=== PATIENT | male | born 1940 | race Caucasian/White ===

== ENCOUNTER 2016-05-04 | Outpatient (CLI) | payer MEDICARE, OTHER | END 2016-05-04 11:18 | disposition home or self-care (01) ==

== ENCOUNTER 2016-08-26 09:02 | Outpatient (CLI) | payer MEDICARE, OTHER ==
--- NOTE | 2016-09-01 20:56 | CONSULTATION NOTE ---
DATE OF CONSULTATION: 08/26/2016 00:00:00 REQUESTING PROVIDER: Sonu Ibarra MD. TIME OF VISIT: 9:15-9:45. TOPIC: Followup palliative care consult. Thank you, Dr. Ibarra, for asking the palliative care consult service to be involved in the care of your patient. I am asked to provide support for symptom management, as well as goals of care discussion. BRIEF HISTORY OF PRESENT ILLNESS UPDATE: This is a ana 76-year-old gentleman who was diagnosed with small cell lung cancer, limited stage of left upper lobe , since 08/2015. He had radiation and chemotherapy, as well as prophylactic brain radiation. Has had intermittent confusion, which continues to be of distress for him. 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 He is on carboplatin and COUNTER TENDER-16. He has had intermittent recurrent left pleural effusion with the last thoracentesis done in 05/2016. He is presenting with increased pain in his lower back that is exacerbated with standing, relieved with sitting. Has been using oxycodone pain pills intermittently, but his confusion is of concern. He also has had increased confusion, hallucinations, and difficulty with fatigue. Most recently he did take a cruise through [place]. He was in his wheelchair most of the time, but did enjoy his trip. SYMPTOM BURDEN: Pain as noted above, rates it as moderate to severe. Fatigue has been increasing. He has had less energy and has been quite sedentary. His nausea has been fair. His appetite is good. He has had shortness of breath with activity. Does use oxygen at night, but has not needed it during the day. He does report depression and anxiety and despite his progressive disease perceives his overall quality of life as fair. ALLERGIES: NO KNOWN MEDICATION ALLERGIES. MEDICATION LIST 1. Escitalopram 10 mg tabs 2 tabs daily. 2. Propranolol 10 mg 2 tabs by mouth every morning and 1-2 tabs in the afternoon for anxiety and tremor. 3. Aspirin 81 mg daily. 4. Amantadine 10 mg 1 tab twice daily. 5. Dexamethasone 4 mg, he is down to 1 tab daily. 6. Vitamin D3 2000 units twice daily. 7. Vitamin D2 50,000 one tab each weekly. 8. Mirtazapine 30 mg 1/2 tab at bedtime. 9. Simvastatin 40 mg at bedtime. 10. Senna concentrate 8.6 mg 2 tabs twice a day for constipation. 11. Docusate calcium 240 mg 1 tab twice daily. 12. Miralax 17 grams as needed. 13. Oxycodone 5 mg tab up to 4 times a day as needed for pain. 14. Zofran 8 mg 1 tab every 8 hours as needed for nausea or vomiting. 15. Advair 250 mcg/50 mcg 1 puff BID 16. Has nebulizer at home, unsure of formulation CODE STATUS: THE PATIENT CURRENTLY IS A FULL CODE. THIS DOES NEED TO BE FURTHER ADDRESSED. BRIEF SOCIAL HISTORY: He lives here with his , Miri Villalba, who is a very attentive caregiver and a good advocate for him. They have recently lost their son and both continue to be grieving over this. They do recognize the seriousness of his illness and continue to try and just live day to day. PERFORMANCE STATUS: The patient is quite sedentary. He is sleeping quite a bit. It does appear he has been up and more restless at night. I would put him at a palliative care performance status at 70%. He does need cueing for ADLs at times. REVIEW OF SYSTEMS HEENT: He has mild hearing loss. He reports increased difficulty with swallowing , particularly pills. CARDIOVASCULAR: No chest pain, though at times presents with orthopnea. RESPIRATORY: He does have intermittent cough, occasional productive of yellow sputum. GASTROINTESTINAL: They are managing his constipation currently, titrating his bowel medications. GENITOURINARY: No trouble voiding. MUSCULOSKELETAL: Limited as far as his activity by his back pain. He has had back pain in the past. It is unclear if this is related to a disease process or an exacerbation of his underlying chronic back pain issues. INTEGUMENTARY: His hair has grown in. He has dry skin. NEUROLOGIC: Over the last week, seems with the timing of the decrease in the Decadron, he has had some increased confusion and some hallucinations, is difficult at times to reorient. He does spend quite a bit of time watching TV. ENDOCRINE: Denies history of diabetes or hypothyroidism. HEMATOLOGIC/IMMUNOLOGIC: No recent infections. PHYSICAL EXAMINATION GENERAL: He does appear actually filled out some. His weight is 69.4 kilograms. He reports his appetite has been better. He is making good eye contact, was participating in the visit today. He does get somewhat lost in the conversation and attributes this to some of his confusion. He was quite descriptive in his hallucinations and they do involve fire, things that are more frightening for him. EYES: Normal on inspection, some periorbital edema. ENT: Mucous membranes are moist. Poor dentition. NECK: Trachea midline. SKIN: Quite dry. RESPIRATORY: Does have decreased breath sounds in his left lower lobe. Does have some expiratory wheezes, has not been using his inhaler. CARDIOVASCULAR: His pulse is regular. His vital signs from today, temperature 36.6, pulse 95, blood pressure 139/92. ABDOMEN: Soft and flat. Bowel tones normal. EXTREMITIES: He is able to get from sitting to standing without any difficulty. His gait does appear a little tentative. PALLIATIVE CARE DISCUSSION: Who is present, the patient, myself and his . He is somewhat distressed with his increase in hallucinations and confusion. They do seem to coincide over the last several days from his decrease in his Decadron. Will continue to monitor. He is using also some oxycodone that may be attributing as well. He does have quite a bit of anxiety. They are somewhat anxious with his increase in symptom burden and his recurrent disease. They are of course hoping for the best and are pleased he is tolerating his treatment fairly well. IMPRESSION: This is a 76-year-old gentleman with small cell lung cancer with progressive disease, is on currently second line chemotherapy. Continues with neurocognitive changes with recurrent brain METS and underlying known limitations as well. He does see a neurologist for medications as well. RECOMMENDATIONS/COUNSELING DONE 1. Confusion. This is most likely multifactorial in origin including his recent dexamethasone taper, increased use of his oxycodone, and progressive cognitive decline. Will continue to reorient him, watch and evaluate over the next week to see if this improves. 2. Back pain. Unclear if this is an exacerbation of his ongoing chronic back pain or if this is new related to his disease process. It is fairly focal on examination, tender with palpation, does increase with some standing, and relieved with sitting. Did encourage the use of heat and also Salonpas, trying to decrease medications that alter mentation. We will see if these, as well as more regular use of his oxycodone help. 3. Dyspnea. The patient has not been using his inhalers and is somewhat confused as far as how to use them appropriately. He does have some wheezing and may benefit from this. He will bring his inhalers in next week and we will review technique. reports he does have spacers, but cognitively and with cueing is having difficulty being adherent with this. 4. Constipation. They are titrating his medications appropriately. 5. Fatigue. This is multifactorial in origin. They have not been able to reimplement their walking program with his increase in back pain. Will continue to evaluate. He is mildly hypokalemic, counseling on potassium rich foods. TIME SPENT: 30 minutes with greater than 50% of this done in counseling and coordination of care. We will see the patient back in a week to evaluate confusion and back pain and further discussion regarding goals of care. JOB #: [id number] EXT JOB #:[id number] TEODORA
== END 2016-08-26 09:03 | disposition home or self-care (01) ==
LOC: PC 09:02
PROVIDERS: ATTEND Nurse Practitioner Adult Health
DX: Z51.5 Encounter for palliative care (principal); R41.0 Disorientation, unspecified; M54.5 Low back pain; R06.00 Dyspnea, unspecified; K59.00 Constipation, unspecified; C34.12 Malignant neoplasm of upper lobe, left bronchus or lung; C77.9 Secondary and unspecified malignant neoplasm of lymph node, unspecified; C79.31 Secondary malignant neoplasm of brain; Z79.891 Long term (current) use of opiate analgesic; R11.0 Nausea; F32.9 Major depressive disorder, single episode, unspecified; F41.9 Anxiety disorder, unspecified; Z79.82 Long term (current) use of aspirin; Z79.51 Long term (current) use of inhaled steroids; R13.10 Dysphagia, unspecified; R05 Cough; R44.1 Visual hallucinations; Z79.899 Other long term (current) drug therapy
CPT/HCPCS: 99214

== ENCOUNTER 2016-09-02 12:24 | Outpatient (CLI) | payer MEDICARE, OTHER ==
--- NOTE | 2016-09-05 08:44 | CONSULTATION NOTE ---
DATE OF CONSULTATION: 09/02/2016 00:00:00 REQUESTING PROVIDER: Sonu Ibarra MD, PhD TIME OF VISIT: 1230 to 1315 TOPIC: Followup palliative care consult. Thank you, Dr. Ibarra, for asking the palliative care consult service to be involved in the care of yo ur patient. I am asked to provide support for symptom management as well as goals of care. BRIEF HISTORY OF PRESENT ILLNESS: This is a 76-year-old gentleman who was diagnosed with small cell l saima cancer, limited stage of the left upper lobe since 08/2015. At that point in time, he had radiati on and chemotherapy, as well as prophylactic brain radiation. He has continued to have intermittent c onfusion, which has been a distress for him. He was started on some cognitive medications, but has no t seen much improvement. Most recently, he was restarted on systemic chemotherapy related to the find ings of metastatic disease not only involving the brain with metastatic disease, but mesenteric lymph nodes. He is on carboplatin and AUTHORIZATION REPRESENTATIVE-16. He continues to have intermittent recurrent left pleural effu marci with his last thoracentesis being in 05/2016. He has had increased lower back pain that is exacerbated with standing, twisting, is relieved with si tting. This has been fairly longstanding, but has been more problematic over the last few weeks and t hat has limited his mobility. He also just recently this last Tuesday had an acute fall. He is unable to tell me the circumstances around this because of his confusion. Though his back pain is exacerbate d, he is only needing to use the oxycodone 5 mg one to two times a day. He has gotten some relief wit h heat as well as offloading weight on his lower back with his walker. Currently, he denies any pain. On examination, what has been most distressful both for the patient and particularly his Miri saul has been his cognitive symptoms. He is unable to recall about the fall, nor how he got in. He cont inues to have intermittent hallucinations, seeing "critters," sometimes smells, does not attribute th sarah to the timing of his medication or any hour of day. He has not had any acute kidney infections no r has this happened in conjunction to his hypoxia. He did have one period of hypoxia that did impact last week. He is supposed to be wearing oxygen at night, but he often does not keep it on and awakens sometimes with increased confusion, but his other confusion does not correlate with low oxygen. It i s thought this might be attributed to his decrease in Decadron, but has not really changed in severit y as far as improving and may even be worsening. The patient himself has very little insight to this. He is oriented to person and place, but not to time. His does redirect, but is concerned about his safety. SYMPTOM BURDEN: Pain as noted above, he does describe it as severe when it is bad that it is grabbing , spasmodic in nature, lasts anywhere from a few seconds to a half hour to 45 minutes. It is often br ought on with prolonged standing or activity. He has had increased fatigue, meaning he has been sleep ing more and more. He spends quite a bit of time in his recliner. He admits to less energy. His nause a has been fair. His appetite is good. He does have shortness of breath with activity. He does report some intermittent depression and anxiety, but overall perceives his quality of life as fair. MEDICATIONS: No updates to his medication list. CODE STATUS: THE PATIENT IS CURRENTLY A FULL CODE. BRIEF SOCIAL HISTORY: He is here with his Miri Villalba who herself has been sick for the last couple weeks with bronchitis which has increased her caregiver fatigue and stress. She does recognize his d ecline is related to his disease process, but there are certainly some underlying concern for his cog nitive status. PERFORMANCE STATUS: The patient is quite sedentary. He is sleeping quite a bit. He is up at night, so metimes more restless, would put him at a palliative care status of probably 70%. He does need cueing for his ADLs. REVIEW OF SYSTEMS HEENT: He has mild hearing loss. He has had some trouble with swallowing the pills. CARDIOVASCULAR: No chest pain. RESPIRATORY: Intermittent cough occasionally productive of yellow sputum. He is having very much diff iculty understanding his Advair Diskus. This is quite a bone of contention between he and the . Vera langford also does not keep his oxygen on. GASTROINTESTINAL: Denies trouble with constipation managing. GENITOURINARY: No trouble with voiding. MUSCULOSKELETAL: Has been limited because of his back pain. INTEGUMENTARY: He has dry skin. He has had a skin tear secondary to his fall. NEUROLOGIC: He is having more cognitive decline, hallucinations, paranoia, difficulty cuing and remem bering things as far as activities. ENDOCRINE: No history of diabetes or hypothyroidism. HEMATOLOGIC/IMMUNOLOGIC: No recent infections. PHYSICAL EXAMINATION GENERAL: He does appear somewhat scattered, anxious today. He does have difficulty tracking the conve rsation, but is willing to engage. CARDIOVASCULAR: His pulse is 72. RESPIRATORY: He does have diminished breath sounds in his left lower lobe. No expiratory wheezes toda y. ABDOMEN: Flat. EXTREMITIES: He is able to get from sitting to standing. He is using his walker. SKIN: Skin tear about 2 x 3 cm on left elbow, no signs or symptoms of infection. PALLIATIVE CARE DISCUSSION: The patient does remain frustrated with his limitations, particularly his poor insight to his increasing and intermittent confusion. The paranoia and hallucinations have not decreased. He denies any headache pain with this, though. We did discuss just his concerns over his p rogressive disease, how to cope on a day to day basis and normalizing their current feelings regardin g his decline. IMPRESSION: This is a 76-year-old gentleman with small cell lung cancer, progressive disease, current ly on second line chemotherapy. Continues to have neurocognitive changes, recurrent brain metastasis, unknown etiology, may also be his cognitive decline, as he has mild dementia. He is due to see the p sychiatrist after my visit. RECOMMENDATIONS/COUNSELING DONE 1. Confusion, most likely multifactorial in origin, seems to be exacerbated by his current dexamethas one taper, though there was thought the decadron was part of the increased confusion. Currently, he i s not receiving radiation for his metastatic disease. Given his paranoid hallucinations and the stres s, particularly in the evenings, would consider possibly initiating some Seroquel, half a tab in the evenings. Given he is seeing his psychiatrist after me, I did put this in writing as a suggestion, th ough will defer currently regarding this, though I suspect it might be of benefit. 2. Back pain, acute on chronic. Again, unknown if this is ongoing chronic back pain, as he has had it on and off over years, or if it is related to his disease process. It remains focal on examination a nd has improved somewhat over the week. Encouraged again to use Salonpas as well as to notify me if h e is needing more frequent oxycodone. Also reviewed the use of heat and positioning. 3. Dyspnea. The patient is to be taking Advair twice a day, is quite almost belligerent, in managing the Diskus. I did show him again how to use it, as well as his . We did manage to get it working correctly, though he remains quite frustrated with it. 4. Constipation, titrating these meds appropriately. 5. Fatigue, multifactorial in origin. They have not been able to implement their activity program wit h increased back pain. 6. Left elbow skin tear secondary to ground-level fall. I did clean it with normal saline and apply d ressing, reviewed care with . TIME SPENT: Forty-five minutes with greater than 50% of this done in counseling and coordination of c are. Will continue to follow up on patient regarding his ongoing progress. VITAL SIGNS: Blood pressure 97/63, pulse 95, O2 saturation 93%, temperature 36.2. JOB #: [id number] EXT JOB #:[id number]
== END 2016-09-02 12:25 | disposition home or self-care (01) ==
LOC: PC 12:24
PROVIDERS: ATTEND Nurse Practitioner Adult Health
DX: Z51.5 Encounter for palliative care (principal); R41.0 Disorientation, unspecified; M54.9 Dorsalgia, unspecified; R06.00 Dyspnea, unspecified; K59.00 Constipation, unspecified; S51.012A Laceration without foreign body of left elbow, initial encounter; W18.30XA Fall on same level, unspecified, initial encounter; C34.12 Malignant neoplasm of upper lobe, left bronchus or lung; C77.9 Secondary and unspecified malignant neoplasm of lymph node, unspecified; C79.31 Secondary malignant neoplasm of brain; J90 Pleural effusion, not elsewhere classified; Z79.891 Long term (current) use of opiate analgesic; Z99.81 Dependence on supplemental oxygen; R11.0 Nausea; R06.09 Other forms of dyspnea; F32.9 Major depressive disorder, single episode, unspecified; F41.9 Anxiety disorder, unspecified; R05 Cough; Z79.51 Long term (current) use of inhaled steroids; Z91.19 Patient's noncompliance with other medical treatment and regimen; F22 Delusional disorders; Z79.899 Other long term (current) drug therapy
CPT/HCPCS: 99215

== ENCOUNTER 2016-09-15 10:00 | Outpatient (CLI) | payer MEDICARE, OTHER ==
--- NOTE | 2016-09-15 18:30 | CONSULTATION NOTE ---
DATE OF CONSULTATION: 09/15/2016 00:00:00 REQUESTING PROVIDER: Sonu Ibarra MD. TIME OF VISIT: 10:15-10:45. TOPIC: Followup palliative care consult. Thank you, Dr. Ibarra, for asking the palliative care consult service to be involved in the care of yo ur patient. I am providing support for symptom management as well as goals of care. BRIEF HISTORY OF PRESENT ILLNESS: This is a 76-year-old gentleman who was diagnosed with small cell l saima cancer of limited stage of left upper lobe since 08/2015. He has had radiation and chemotherapy a nd prophylactic brain radiation. He was started on systemic chemotherapy after the findings of metast atic disease not only involving his brain, but mesenteric lymph nodes, as well. He is on carboplatin and WEB WEAVER-16. Continues to have intermittent recurrent left pleural effusion with his last thoracentesis being in May 2016. He has had fluctuating back pain, which is exacerbated with standing and twisting, relieved with sitt ing. This has been fairly longstanding. He has used intermittent oxycodone 1-2 tabs a day. He has act ually been better, but today does present with some increased discomfort. Of most significance has been his cognitive symptoms. He reports after seeing the psychiatrist after our last visit on 09/02/2016, they did initiate the Seroquel 25 mg 1/2 tab at bedtime. His repor ts that it has gone from critters to seeing people, does not seem as bad, but what is more is his mor e up and down and some agitation. He has had some intermittent falls. The patient himself thinks the hallucinations have improved over the last week. He has not had any seizure activity and remains on t he Decadron 4 mg. He is oriented to person and place. Is aware he does have some confusion. His does redirect, but feels like she needs to watch him constantly. This does create some difficult fernando mics between the two of them. SYMPTOM BURDEN: Pain as noted above. When it is severe, it is a grabbing spasmodic in nature. He does report increasing fatigue and tiredness. He has been sleeping more and more. He does report some int ermittent periods of weakness. He does have some activity intolerance. He was having difficulty walki ng in without needing to rest, so I think this is more attributed to his pain. His potassium, though, is at 3.3 today. He does have some shortness of breath with activity. He is using his oxygen at nigh t though does not perceive this as necessary. Though his reports he gets more confused off of it . His appetite is starting to diminish. He reports he has seen taste changes. He does report depressi on, in particular anxiety. He is very anxious about his upcoming scans and have gotten some lorazepam to help with that. CODE STATUS: THE PATIENT IS CURRENTLY A FULL CODE, THOUGH BOTH ARE AWARE OF THE SERIOUSNESS OF HIS IL LNESS. BRIEF SOCIAL HISTORY: His , Odalys, is his main caregiver. Does oversee him. She is experiencin g some caregiver fatigue. She does recognize his decline is related to the disease process. PERFORMANCE STATUS: The patient is quite sedentary. He is taking less initiative to ambulate for long er periods. He does sleep quite a bit. He has been sleeping more at night. I would put him at a [facility] care status of about 70%. REVIEW OF SYSTEMS: HEENT: He has mild hearing loss. Does have intermittent trouble with pills. CARDIOVASCULAR: No chest pain. RESPIRATORY: Did have increasing productive cough of yellow sputum, was started on antibiotics by Dr. Ibarra, for bronchitis. GASTROINTESTINAL: Reports managing constipation. GENITOURINARY: No trouble voiding. MUSCULOSKELETAL: Deconditioned and limited ambulation secondary to his pain. INTEGUMENTARY: He has dry skin. His skin tear is healing. NEUROLOGIC: He reports more improvement in his hallucinations. reports still is having difficult y with some paranoia, difficulty cueing and memory issues. ENDOCRINE: No history of diabetes or hypothyroidism. HEMATOLOGIC/IMMUNOLOGIC: Now most recently treated for bronchitis with antibiotics. PHYSICAL EXAMINATION: GENERAL APPEARANCE: He is engaged, is able to answer questions. Does seem a little bit more focused t andrzej. EYES: Normal on inspection. ENT: He does have some oral candidiasis with white plaques on his tongue, a few buccally. He is now o n antibiotics, as well as his Decadron. NECK: Trachea midline. No lymphadenopathy. RESPIRATORY: On his left lower lobe about half the way up there are no breath sounds. He reports as w ell as that they have not had distress when he has needed the thoracentesis, though I am concern ed. He has no wheezing today. ABDOMEN: Flat, hyperactive bowel tones. EXTREMITIES: He is able to get from sitting to standing, though is weak. SKIN: His elbow has healed nicely. EXTREMITIES: No lower extremity edema. PALLIATIVE CARE DISCUSSION: The patient and the remain concerned and feeling somewhat vulnerable with his ongoing declining issues, very worried about the upcoming scan, recognizing the severity of his illness is of more concern. They continue to hope for the best, but recognizing that he is havin g more symptoms overall. IMPRESSION: This is a 76-year-old gentleman with small cell lung cancer and progressive disease, curr ently on second line chemotherapy, continues to have neurocognitive changes, though does appear to mathur ve responded somewhat to the Seroquel. He still continues with some hallucinations and paranoia and n eeding more cueing. RECOMMENDATIONS/COUNSELING DONE: 1. Confusion, most likely multifactorial in origin. Concern it may be his brain mets are contributing by the Decadron. He did get some improvement with the Seroquel 1/2 tab at 25 mg. Did encourage to go ahead and take a full tab at bedtime. 2. Back pain, acute on chronic: He is using the intermittent oxycodone with relief. Again, reinforced the use of nonpharmacological interventions as well. 3. Dyspnea. The patient is being treated for bronchitis. I suspect his increasing breathlessness is r elated to his pleural effusion. He is due for scans towards the end of the month and may need to revi sit tapping him again. 4. Constipation: Titrating medications appropriately. 5. Fatigue, multifactorial in origin. They have not been able to continue with their activity program . He is much more sedentary. 6. Left elbow skin tear secondary to ground-level fall. This is healing nicely without any signs or s ymptoms of infection. 7. Oral candidiasis. Prescription was provided for Nystatin 1000 mg/mL, 5 mL t.i.d. swish and swallow to use over the next 10 days. VITAL SIGNS: Blood pressure 116/83, pulse 83, temperature 36.7, O2 94% on room air at rest. TIME SPENT: 30 minutes with greater than 50% of this done in counseling and coordination of care, heather ghing benefits and burdens of titrating medications, as well as anticipatory guidance. JOB #: [id number] EXT JOB #:[id number]
== END 2016-09-15 10:01 | disposition home or self-care (01) ==
LOC: PC 10:00
PROVIDERS: ATTEND Nurse Practitioner Adult Health
DX: Z51.5 Encounter for palliative care (principal); R41.0 Disorientation, unspecified; G89.29 Other chronic pain; M54.9 Dorsalgia, unspecified; Z79.891 Long term (current) use of opiate analgesic; R06.00 Dyspnea, unspecified; K59.00 Constipation, unspecified; R53.83 Other fatigue; S51.012D Laceration without foreign body of left elbow, subsequent encounter; W19.XXXD Unspecified fall, subsequent encounter; B37.0 Candidal stomatitis; C34.12 Malignant neoplasm of upper lobe, left bronchus or lung; C79.31 Secondary malignant neoplasm of brain; C77.2 Secondary and unspecified malignant neoplasm of intra-abdominal lymph nodes; Z91.81 History of falling; Z79.899 Other long term (current) drug therapy
CPT/HCPCS: 99214

== ENCOUNTER 2016-09-24 11:47 | Outpatient (CLI) | payer MEDICARE, OTHER ==
--- NOTE | 2016-09-27 07:08 | CONSULTATION NOTE ---
DATE OF CONSULTATION: 09/24/2016 00:00:00 REQUESTING PROVIDER: Sonu Ibarra MD, PhD TIME OF VISIT: 8922-3328 hours. Thank you, Dr. Ibarra, for asking the Palliative Care Consult Service to be involved in the care of yo ur patient. I am providing support for symptom management, as well as goals of care. 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 He has since received radiation and c hemotherapy, as well as prophylactic brain irradiation. 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 He continues to have intermittent r ecurrent left pleural effusion with his last thoracentesis being in 05/2016. He has been having progr essive cognitive decline, including significant hallucinations; he sees "critters," has difficulty be ing oriented to person or place, and easily presents with agitation and anxiety. These are not suppor susy by hypoxia; certainly he has been on some intermittent oxycodone, but even when he has not been t aking it, this has been problematic. 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 He has not had a ny further falls or seizure activity. Today he presents with progressing increased pain. He describes his pain in his back, radiating aroun d a band across his upper abdomen. He has needed increased assistance in getting from sitting to saeed ding because of the pain, and it does get exacerbated with any kind of twisting. He has had some inte rmittent longer periods of drowsiness and fatigue. His had called me earlier in the week wonderi ng if this was time to transition to hospice. He has had less to eat and drink, and this has been of concern as well. He has not been feverish or chilled. The concern was possible underlying pneumonia w ith this. He has not had any increase or decrease or worsening cough, continues to have a small amoun t of productive sputum, yellowish in nature, and has finished antibiotic initiated by Dr. Ibarra. His oral candidiasis has responded to the nystatin. SYMPTOM BURDEN: Pain as noted above, he rates it as severe, it "grabs" him when it gets bad. He does have increasing fatigue and weakness, is sleeping more and more, and has more difficulty tolerating a ctivity. He is having increased difficulty walking and does appear somewhat shaky and weak. He denies increased shortness of breath with this. He does wear oxygen at night. His appetite is starting to d iminish. He remains on Decadron at 4 mg. He does appear to be aware that he is confused and does repo rt some depression. He does feel like "we overdue all this stuff" in talking about his current sympto ms with his . He is very anxious about his upcoming scans, and weighing benefits and burdens, and discussion as far as whether to continue on this route or consider transitioning to hospice sooner. CODE STATUS: This was addressed at this visit. He is a DO NOT ATTEMPT RESUSCITATION, LIMITED INTERVEN TIONS, DETERMINE THE USE OR LIMITATION OF ANTIBIOTICS IF INFECTION OCCURS, WITH COMFORT THE GOAL, AND NO MEDICALLY ASSISTED NUTRITION BY TUBE. DPOA: His durable power of finance attorney is his , Juancho Tatum. BRIEF SOCIAL HISTORY: His , certainly recognizes his decline. In discussing her current support, she is experiencing quite a bit of caregiver fatigue. She does recognize it is most likely his diseas e process and does have questions about how they are going to manage at home and what hospice looks l karla in the future. PERFORMANCE STATUS: The patient continues to have increased difficulty ambulating, needed assistance from sitting to standing. He is quite weak and shaky today. He has been sleeping quite a bit but is s leeping at night. I would put him today at a decreased palliative care status of 60%. REVIEW OF SYSTEMS HEENT: He has mild hearing loss, intermittent difficulty with swallowing. CARDIOVASCULAR: No chest pain. RESPIRATORY: As noted above. GASTROINTESTINAL: They are managing his constipation. GENITOURINARY: No trouble voiding. MUSCULOSKELETAL: Deconditioned, limited ambulation secondary to pain; spends most of his time in his recliner. INTEGUMENTARY: He has dry skin. NEUROLOGIC: Some improvement in hallucinations, though they still remain problematic. He is experienc ing them actually during our visit today, kept looking for the critters behind me. ENDOCRINE: No history of diabetes or hypothyroidism. HEMATOLOGIC/IMMUNOLOGIC: Most recently treated now for bronchitis with antibiotics. PHYSICAL EXAMINATION GENERAL APPEARANCE: He does appear somewhat more shaky, distracted; difficulty staying focused. HEENT: Eyes normal on inspection. ENT: His plaques have resolved on his tongue. NECK: Trachea midline. No lymphadenopathy. RESPIRATORY: On the left, no breath sounds fci up. No expiratory wheezing, crackles, or rhonchi. ABDOMEN: Flat. Bowel tones. They did have some constipation this last week but had a good bowel movem ent today. EXTREMITIES: He needs assistance getting to standing. No edema. PALLIATIVE CARE DISCUSSION: We are somewhat waiting for the "scans." He is scheduled for scans on Tue, as well as a followup MRI of his brain on Tuesday. Unclear if these are really going to inform his decisions, as he at this point in time appears quite frail and most likely would tolerate treatm ent poorly. He continues to have neuro cognitive changes, as well as functional decline. I am concern ed, though, that we rule out any further signs or symptoms of infection, though he does not present w ith fever or chills, and cough is improved. We did discuss what his goals of care were, which were to focus on comfort, and at end of life to hav e a respectful and comfortable at home. He was able to express this to Juancho that those would be his wishes. He does recognize it is coming, though does not appear to have a lot of insight just to the seriousness of his illness or his decline over the last couple weeks. The POLST form was compl eted, and instructions were given to post it on the refrigerator, as well as counseling to Juancho goel at the hospice team would look like and support provided. IMPRESSION: This is a 76-year-old gentleman with small-cell lung cancer, brain metastases, and progre ssive disease. He continues to have neurocognitive decline and now presents with functional decline a s well. He has responded somewhat to the Seroquel with his hallucinations and neurocognitive neuropsy chiatric symptoms, but continues with some paranoia and needing cueing. He also presents now with mor e [id number] pain and concern for pain of neoplastic origin. RECOMMENDATIONS/COUNSELING DONE 1. Pain of neoplastic origin. Given his intermittent wakefulness and fatigue, and awakening in severe pain, we will go ahead and initiate fentanyl 12 mcg patch; was using the oxycodone for breakthrough pain. Instruction and counseling was given to his on expectation of initiation of peak as well a s use of oxycodone for breakthrough pain. 2. Dyspnea. Patient finished his treatment for bronchitis. I am concerned his decline may be related to his pleural effusion. We did discuss weighing benefits and burdens, and we will go ahead and get a chest x-ray secondary to his current distress and decline. 3. Confusion, again most likely multifactorial in origin. Concerned it may be progressive brain metas tases. He is currently on Decadron 4 mg; it is unclear if this is adding to his confusion or providin g support, as far as cerebral edema. He has had some improvement on the Seroquel at 25; we will leave it at his current dosing. 4. Constipation. Patient does present with intermittent constipation; again reviewed titrating his me dications appropriately with Juancho. 5. Oral candidiasis. Encouraged to continue to finish the prescription for the nystatin as able. 6. VITAL SIGNS: 112/74, O2 saturation is 93%, temperature at 98.8, and pulse at 95. 7. Advanced care planning. Counseling was done, and the POLST was completed to reflect goals of care, as well as DO NOT ATTEMPT RESUSCITATION status. I would recommend, depending on the outcomes of his scan and, if the patient qualifies for any further brain irradiation, to consider transitioning into hospice, given his decline. Time spent 60 minutes, with greater than 50% of this done in counseling regarding pain and symptom ma nagement, dyspnea, weighing benefits and burdens of advanced care planning, as well as anticipatory g uidance. ADDENDUM: Chest x-ray was done, actually the patient had developed interval compression fractures of T10 and mild degree at T11 since preceding chest CT on 07/19/2016. This would explain or reflect some what, given his [id number] pain presentation. This was shared with his , and they are alrea dy putting him on some fentanyl. I would encourage use of the oxycodone for breakthrough. It showed m ild increase in the pleural changes with thickening, with some increase in modulated sized loculation , but did not show anything on the right, as far as infiltrates. The pleural changes unfortunately ob scure the left hemidiaphragm, as well as portions of the left mid and lower lung hunter. He is due fo r a CT scan coming up this Tuesday. At this current time, we will attribute some of his pain and di scomfort to his fractures and continue to monitor his cognitive decline. JOB #: [id number] EXT JOB #:[id number]
== END 2016-09-24 11:48 | disposition home or self-care (01) ==
LOC: PC 11:47
PROVIDERS: ATTEND Nurse Practitioner Adult Health
DX: Z51.5 Encounter for palliative care (principal); C34.12 Malignant neoplasm of upper lobe, left bronchus or lung; G89.3 Neoplasm related pain (acute) (chronic); C77.2 Secondary and unspecified malignant neoplasm of intra-abdominal lymph nodes; C79.31 Secondary malignant neoplasm of brain; R06.00 Dyspnea, unspecified; R41.0 Disorientation, unspecified; K59.00 Constipation, unspecified; B37.0 Candidal stomatitis; M48.54XD Collapsed vertebra, not elsewhere classified, thoracic region, subsequent encounter for fracture with routine healing; G89.29 Other chronic pain; R26.2 Difficulty in walking, not elsewhere classified; Z79.891 Long term (current) use of opiate analgesic; Z79.899 Other long term (current) drug therapy; Z66 Do not resuscitate
CPT/HCPCS: 99215

== ENCOUNTER 2016-09-24 12:51 | Outpatient (CLI) | payer MEDICARE, OTHER ==
--- NOTE | 2016-09-24 14:22 | XRAY Report ---
CHEST PA AND LATERAL: 09/24/2016 CLINICAL HISTORY: The patient has a malignant pleural effusion. COMPARISON: 05/25/[address] of 07/19/2016. FINDINGS: The bony thorax demonstrates mild anterior spurring in the thoracic spine. Compression fra cture of a moderate degree is noted at T10. This was not seen on the recent chest CT dated 07/19/2016 . Mild loss in height is also noted at T11. This was not seen on preceding chest CT exam. The heart and great vessels demonstrate the cardiac size to be obscured by pulmonary pathology. It is probably within normal limits as estimated by its appearance on lateral projection. The thoracic aor ta appears normal. A Port-A-Cath is seen in place with its tip in the superior vena cava. A left pleural effusion of small to moderate degree is seen obscuring the left hemidiaphragm and port ions of the left lower to mid lung field. These pleural changes appear mildly progressive as compared to preceding exam. It is most likely a more loculated left pleural effusion and/or more pleural thic kening than seen on preceding exam. Evidence of emphysema is once again noted with cystic changes not ed in the lung elias bilaterally including the right lung and left upper lobe. IMPRESSION: 1. INTERVAL COMPRESSION FRACTURES OF MODERATE DEGREE OF T10 AND OF MILD DEGREE OF T11 SINCE PRECEDING CHEST CT OF 07/19/2016. 2. MILD INCREASE IN PLEURAL CHANGES INCLUDING PLEURAL THICKENING AND PROBABLY SMALL TO MODERATE SIZED LOCULATED LEFT PLEURAL EFFUSION IS NOTED COMPARED TO CHEST X-RAY OF 05/25/2016. PLEURAL CHANGES O BSCURE THE LEFT HEMIDIAPHRAGM WELL PORTIONS OF THE LEFT MID AND LOWER LUNG ELIAS. 3. PORT-A-CATH IS NOTED IN PLACE WITH ITS TIP IN THE SUPERIOR VENA CAVA. JOB #: [id number] EXT JOB #:[id number]
== END 2016-09-24 12:52 | disposition home or self-care (01) ==
LOC: DI 12:51
PROVIDERS: ATTEND Nurse Practitioner Adult Health
DX: J91.0 Malignant pleural effusion (principal); M48.54XA Collapsed vertebra, not elsewhere classified, thoracic region, initial encounter for fracture
CPT/HCPCS: 71020

== ENCOUNTER 2016-10-28 11:28 | Outpatient (CLI) | payer MEDICARE, OTHER ==
--- NOTE | 2016-10-28 17:43 | PROVIDER PROGRESS NOTE ---
Palliative Care Follow Up - Referral Referring Provider: Dr. Ibarra Time of Visit: 3655-0412 [place] [facility] [place] Reason: Confusion - Information Sources History obtained from: Patient, Family (Juancho very dedicated and capable caregiver) - History of Present Illness Update Brief HPI Update: This is a 76 year old gentleman who was diagnosed with small cell lung cancer of left upper lobe in 09/2015 who received concurrent chemoradiation and prophylactic XRT to brain. Extensive stage with metastatic dx to brain and mesenteric node since 05/2016. Finishing the last of his palliative chemotherapy , with one more scheduled therapy. Patient has not had brain XRT, but managed with decadron 4 mg. Has had increased agitation when pushed dose higher. 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 Has extensive hallucinations, and supervisor intermediates upper extremity tremors. He no longer is able to manage most tasks of daily living without extensive cueing and supervision. His impulsivity has increased his risk of falls, his balance is off, his hallucinations were escalating but have responded somewhat to the seroquel dosing, increased again at today's visit. Patient at times does not recognize , he is able to engage somewhat in conversation but is social in nature, does not present with decision making capicity today. He has developed some nonproductive cough, no fever or chills, no increase in dyspnea though is hypoxic when reclined at night off oxygen. Patient's most recent scan showed positive response to treatment, but clinically has continued to have challenges with neurocognitive decline. Social History - Living Situation Living arrangement: At home Living Situation: With spouse/s.o. ( is pretty exhausted, patient needs 24 hours supervision, just hired someone to give her few hours to run errands etc.) Support System: Daughter in [place] and family have just been for visit, recently lost son end of last year. Medications/Allergies - Medications Home Medications: Ambulatory Orders Medication Instructions Recorded Confirmed Citalopram [CeleXA] 20 mg PO DAILY 07/11/13 10/28/16 Propranolol [Inderal] 10 - 20 mg PO DAILY 09/08/15 10/28/16 Ondansetron HCl [Zofran] 8 mg PO TID PRN 11/17/15 10/28/16 Polyethylene Glycol 3350 [Miralax] 17 gm PO DAILY 11/17/15 10/28/16 Senna [Senokot] 1 - 2 tab ORAL BID 03/24/16 10/28/16 Dexamethasone 4 mg PO DAILY 06/07/16 10/28/16 fentaNYL 12 MCG PATCH [Duragesic 12 mcg ID DAILY 10/04/16 10/28/16 12mcg patch] Potassium Chloride [Micro-K] 10 meq PO DAILY 10/28/16 10/28/16 QUEtiapine [SEROquel] 12.5 mg PO BID 10/28/16 10/28/16 QUEtiapine [SEROquel] 25 mg PO QPM 10/28/16 10/28/16 oxyCODONE [Roxicodone] 5 mg PO Q4HR PRN 10/28/16 10/28/16 - Allergies Allergies/Adverse Reactions: Allergies Allergy/AdvReac Type Severity Reaction Status Date / Time No Known Drug Allergies Allergy Verified 10/25/15 11:33 Review of Systems - Constitutional Constitutional: reports: Fatigue, Poor appetite, Weight loss (139.9) - Eyes Eyes: denies: Blurred vision, Corrective lenses - Ears, Nose & Throat Ears, Nose & Throat: reports: Hearing loss (mild), Other (symptoms of candidiasis resolved) - Cardiovascular Cariovascular: reports: Exertional dyspnea, Decr. exercise tolerance. denies: Chest pain, Edema - Respiratory Respiratory: reports: Cough (increased, non productive. Has pleural effusion on left. desats at night time when lying flat to about 88-90% difficult for her to get him to keep o2 on at night. On multiple pillows without success), SOB at rest (Denies distress with this), SOB with exertion. denies: Sputum production - Gastrointestinal Gastrointestinal: reports: Constipation, Diarrhea (diarrhea problematic with chemotherapy, gets rectal irritation, using barrier cream as prescribed). denies: Nausea, Reflux/heartburn - Genitourinary Genitourinary: reports: Frequency, Incontinence - Musculoskeletal Musculoskeletal: reports: Back pain (has been controlled since patch), Stiffness , Muscle weakness - Integumentary Integumentary: reports: Dryness - Neurological Neurological: reports: General weakness, Memory problems, Abnormal gait (gait ataxic, balance off), Incoordination. denies: Headache, Dizziness - Psychiatric Psychiatric: reports: Anxiety, Delusions (thought mother in law in house yesterday, reports not scared of any of these, confirmed by , just takes convincing at times and is impulsive and has to "check things out" which makes it exhausting), Hallucinations (sees "critters" , especially when moves head rapidly). denies: Depression, Suicidal - Endocrine Endocrine: reports: Other (on decadron, had titrated to effect, cannot tolerate higher as increases agitation) - Hematologic/Lymphatic Hematologic/Lymphatic: reports: Anemia - All Other Systems All Other Systems: reports: Reviewed and negative Physical Examination - Vital Signs Temperature: 36.9 C Pulse Rate: 79 Respiratory Rate: 18 O2 Saturation: 97 Blood Pressure: 117/68 - Physical Exam General Appearance: positive: Anxious Eyes Bilateral: positive: Conjunctivae nml ENT: negative: Oral lesions Neck: positive: Trachea midline Respiratory: positive: Other (Left lower lung without air movement, dull to precussion, right clear). negative: Wheezes Cardiovascular: positive: Regular rate & rhythm Abdomen: positive: Nml bowel sounds Skin: positive: Pallor, Dryness Extremities: positive: No pedal edema (Gait unsure, needing cues for ambulation , mild upper extremity tremors) Neurologic/Psychiatric: positive: Disoriented to person, Disoriented to place, Disoriented to time, Weakness, Slurred/abnml speech Palliative Care - POLST Patient has POLST: Yes POLST Status: DNR, Limited Interventions Pain: Pain improved, Location (back pain controlled with fentanyl, has not needed BTP med) Drowsiness: Moderate (4-6) ( reports spends most of time in recliner) Nausea: None Anxiety: Severe (7-10) (patient anxiety escalates with hallucinations, have improved with addition of AM seroquel, and doing better through night, worst time now late afternoon) Dyspnea: Mild (1-3) (none at rest, does not do well with o2 at night, takes off in his confused state) Anorexia: Mild (1-3), Weight loss Insomnia: Sleeps well Constipation: Comment (alternating with diarrhea with se of chemotherapy, problematic with his confusion to manage) Feelings of wellbeing/Perceived Quality of Life: Worsening ( feels current QOL would not be what patient would accept if able to see himself as he was) Performance Status: Previous level of function prior to this episode [Has slowly progressed with more dependence, cant sequence tasks currently]. Current level of functioning- needs help with bathing, assistance with walking related to balance and needing cuing for tasks/walking directions. Palliative Care Performance Status 50%. - Palliative Care Discussion: Surrogate decision maker- Miri Tatum. wanted to honor patient's wishes to continue treatment, but questioning given palliative in nature, and current difficulty with managing patient if could just transition to hospice "the team". Had talked about hospice last visit, and both had agreed would be next step. feeling current QOL and decline has felt the time is now, and patient having trouble following conversation agreed we would just focus on calling it "the team". He is somewhat aware that Juacnho needs help, though at times does not recognize her. He can't really figure or understand what will happen, so framed it to help Miri Villalba, this was acceptable to him. She cannot leave him "out of sight", had taken him to pickle solution maker meds and he had gotten out of car and was wandering looking for her, she has now made arrangements for some help so she can get out. They met their goal of going on the [place] , so feels ready to focus on comfort and not further treatment or intervention. Given patient easily confused, agreed to get this information to oncologist for Tuesday appointment. Impression and Recommendations - Palliative Care Impression: This is a 76 year old gentlman with smal-cell lulng cancer, brain mets, left pleural effusion with progressive cognitive and functional decline. Despite positive response documented on scans to palliative treatment, clinically doing poorly. would like to move forward with transition to focus on comfort and hospice care. Recommendations/Counseling Done: 1. Pain of neoplastic origin. Back pain from thoracic fx well controlled on current fentanyl 12 mcg patch, has oxycodone 5 mg available if needed for BTP but hasn't needed it. 2. Confusion, multifactorial in origin. CT scan did not show more progression, has underlying dementia, patient with hallucinations, disorientated to time and place, person at times. needing to provide 24 hours supervision, has had improvement of hallucinations with addition of seroquel. Currently at 12. 5 mg in am and 25 mg at bedtime. Will add 12.5 late afternoon as appears to be peak time, and am dosing wears off. 3. Constipation. Patient gets diarrhea with treatment which is problematic to manage, then swings to constipation, using miralax and senna appropriately. 4. Advanced Care planning, will send message to Dr. Ibarra about 's expressed concerns and wishes. Counseling again regarding hospice services, in need of support and assistance with managing neurocognitve changes at home, would benefit from hospital bed and equipment to keep HOB up. Contacted [facility] hospice services with alert regarding pending referral as both [place] and [facility] with waiting lists. Time Spent: 60 minutes with greater than 50% in counseling regarding management of cognition , anticipatory guidance, coordination of care with hospice/MAC.
== END 2016-10-28 11:29 | disposition home or self-care (01) ==
LOC: PC 11:28
PROVIDERS: ATTEND Nurse Practitioner Adult Health
DX: Z51.5 Encounter for palliative care (principal); R41.0 Disorientation, unspecified; C34.12 Malignant neoplasm of upper lobe, left bronchus or lung; C77.2 Secondary and unspecified malignant neoplasm of intra-abdominal lymph nodes; C79.31 Secondary malignant neoplasm of brain; Z66 Do not resuscitate; R40.0 Somnolence; M54.5 Low back pain; F41.9 Anxiety disorder, unspecified; R06.00 Dyspnea, unspecified; R63.0 Anorexia; K59.00 Constipation, unspecified; R19.7 Diarrhea, unspecified; J90 Pleural effusion, not elsewhere classified
CPT/HCPCS: 99215

== ENCOUNTER 2016-11-02 03:13 | Outpatient (CLI) | payer MEDICARE, OTHER | END 2016-11-02 03:14 | disposition critical access hospital (66) | LOC: EMS 03:13 | PROVIDERS: ATTEND Surgery | DX: R29.6 Repeated falls (principal); R19.7 Diarrhea, unspecified | CPT/HCPCS: A0425; A0429 ==

== ENCOUNTER 2016-11-02 03:28 | Emergency (ER) | payer MEDICARE, OTHER ==
--- NOTE | 2016-11-02 04:35 | ED Physician Documentation ---
History of Present Illness - Stated complaint Stated Complaint: FALL/FEVER - Chief complaint Chief Complaint: General - History obtained from History obtained from: Family (spouse), Other (patient is unable to contribute to HPI/ROS due to confusion and AMS) - History of Present Illness Timing: Last night Improved by: no ameliorating factors Worsened by: no exacerbating factors - Additonal information Additional information: HPI from patient's spouse and previous records (on [place]). 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 last week, patient's spouse decided to convert goal of treatment to comfort measures only and hospice care. An in-home hospice evaluation is scheduled for 10:30 AM this morning. However, since last night, he had become more agitated, restless, and repeatedly falling, which is unusual for him. He also had several episodes of diarrhea. 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 His last chemo treatment was 10/13/2016 - Past Surgical History Past Surgical History: Yes General: Appendectomy, Colonoscopy HEENT: Tonsil/Adenoidectomy - Present Medications Home Medications: Ambulatory Orders Medication Instructions Recorded Confirmed Citalopram [CeleXA] 20 mg PO DAILY 07/11/13 11/02/16 Propranolol [Inderal] 20 mg PO DAILY 09/08/15 11/02/16 Ondansetron HCl [Zofran] 8 mg PO TID PRN 11/17/15 11/02/16 Polyethylene Glycol 3350 [Miralax] 17 gm PO DAILY 11/17/15 11/02/16 Senna [Senokot] 1 - 2 tab ORAL BID 03/24/16 11/02/16 Dexamethasone 4 mg PO DAILY 06/07/16 11/02/16 fentaNYL 12 MCG PATCH [Duragesic 12 mcg ID DAILY 10/04/16 11/02/16 12mcg patch] Potassium Chloride [Micro-K] 10 meq PO DAILY 10/28/16 11/02/16 QUEtiapine [SEROquel] 12.5 mg PO BID 10/28/16 11/02/16 oxyCODONE [Roxicodone] 5 mg PO Q4HR PRN 10/28/16 11/02/16 Docusate Sodium 250Mg Capsule 250 mg PO BID 11/02/16 11/02/16 [Colace 250Mg Capsule] Senna [Senokot] 8.6 mg PO BID 11/02/16 11/02/16 fentaNYL 12 MCG PATCH [Duragesic 12 mcg TD Q1HR 11/02/16 11/02/16 12mcg patch] - Allergies Allergies/Adverse Reactions: Allergies Allergy/AdvReac Type Severity Reaction Status Date / Time No Known Drug Allergies Allergy Verified 10/25/15 11:33 - Social History Does the pt smoke?: No Smoking Status: Former smoker Does the pt drink ETOH?: No Does the pt have substance abuse?: No - Immunizations Immunizations are current?: Yes - POLST Patient has POLST: Yes Results - Vitals Vitals: Vital Signs - 24 hr 11/02/16 11/02/16 11/02/16 03:35 04:02 06:40 Temperature 38.0 C H 37.3 C Heart Rate 139 H 139 H 124 H Respiratory 20 22 16 Rate Blood Pressure 109/77 110/76 104/74 O2 Saturation 99 98 97 Oxygen O2 Source Nasal cannula PD MEDICAL DECISION MAKING - ED course Complexity details: reviewed old records, considered differential, d/w family ED course: Patient with low-grade fever in ED. Had outpatient testing performed yesterday, UA only showing 4-5 WBC/HPF, WBC 18K. I had extensive d/w patient's regarding options for testing, treatment. She is clear in expressing that she does not want any testing at this time and wants to go forward with hospice care and comfort measures only. She understands that his elevated WBC and fever likely represent an infection, and that the differential includes life-threatening infection. In regards to limiting treatment to comfort measures, I recommended tylenol for the fever and a one-time dose of IM antibiotic (rocephin), as his POLST indicates antibiotics can be used with goal of patient comfort, and that a shot of rocephin might treat infection and thus make him more comfortable. She is understanding of, and agreeable with, this plan. SW consulted in ED for discussion of placement options. Case signed out to Dr. Wright at end of my shift (7 AM) Departure - Departure Disposition: 01 Home, Self Care Clinical Impression: Need for comfort care Condition: Poor Follow-Up: Rufino Cisneros MD [Primary Care Provider] - Comments: You are going to be taken to [facility] for comfort care
[2016-11-02] MEDS ORDERED: ACETAMINOPHEN 325 MG TABLET PO STA (04:37)
[2016-11-02] MEDS ORDERED: AZITHROMYCIN 250 MG TABLET PO STA (04:39)
[2016-11-02] MEDS ORDERED: cefTRIAXone 1 GM VIAL IM STA (04:52)
[2016-11-02] MEDS ORDERED: ACETAMINOPHEN 650 MG SUPP PR STA (04:52)
[2016-11-02] MEDS ORDERED: cefTRIAXone 1 GM VIAL ONE (04:55)
[2016-11-02] MEDS ORDERED: LIDOCAINE 1% 2 ML VIAL ONE (04:57)
[2016-11-02] MEDS ORDERED: ACETAMINOPHEN 650 MG SUPP PR ONE (04:57)
--- NOTE | 2016-11-02 07:38 | ED Physician Documentation ---
History of Present Illness - Stated complaint Stated Complaint: FALL/FEVER - Chief complaint Chief Complaint: General - Additonal information Additional information: assumed care 7 AM per turn over from Dr Pritchard this is a 76 m with metastatic small cell lung cancer receiving palliative chemo, he is DBR confort care with rec that ab could be used only if will make p comfortable, no artificial food/hydration came to ER for fever and freq falls per Dr Pritchard he spoke at length with family and they declined to have any work up regarding cause of fever, declined any further antibiotics beyond a single dose of Rocephin given in the ER, declined any work up for potential inuries 2/ 2 fall in the ER awaiting SW to discuss hospice has been given tylenol for the fever 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 His last chemo treatment was 10/13/2016 - Past Surgical History Past Surgical History: Yes General: Appendectomy, Colonoscopy HEENT: Tonsil/Adenoidectomy - Present Medications Home Medications: Ambulatory Orders Medication Instructions Recorded Confirmed Citalopram [CeleXA] 20 mg PO DAILY 07/11/13 11/02/16 Propranolol [Inderal] 20 mg PO DAILY 09/08/15 11/02/16 Ondansetron HCl [Zofran] 8 mg PO TID PRN 11/17/15 11/02/16 Polyethylene Glycol 3350 [Miralax] 17 gm PO DAILY 11/17/15 11/02/16 Senna [Senokot] 1 - 2 tab ORAL BID 03/24/16 11/02/16 Dexamethasone 4 mg PO DAILY 06/07/16 11/02/16 fentaNYL 12 MCG PATCH [Duragesic 12 mcg ID DAILY 10/04/16 11/02/16 12mcg patch] Potassium Chloride [Micro-K] 10 meq PO DAILY 10/28/16 11/02/16 QUEtiapine [SEROquel] 12.5 mg PO BID 10/28/16 11/02/16 oxyCODONE [Roxicodone] 5 mg PO Q4HR PRN 10/28/16 11/02/16 Docusate Sodium 250Mg Capsule 250 mg PO BID 11/02/16 11/02/16 [Colace 250Mg Capsule] Senna [Senokot] 8.6 mg PO BID 11/02/16 11/02/16 fentaNYL 12 MCG PATCH [Duragesic 12 mcg TD Q1HR 11/02/16 11/02/16 12mcg patch] - Allergies Allergies/Adverse Reactions: Allergies Allergy/AdvReac Type Severity Reaction Status Date / Time No Known Drug Allergies Allergy Verified 10/25/15 11:33 - Social History Does the pt smoke?: No Smoking Status: Former smoker Does the pt drink ETOH?: No Does the pt have substance abuse?: No - Immunizations Immunizations are current?: Yes - POLST Patient has POLST: Yes PD ED PE NORMAL - Vitals Vital signs reviewed: Yes - General General: Other (awakens and speaks to me) - HEENT HEENT: Atraumatic, PERRL - Cardiac Cardiac: RRR (tachy) - Respiratory Respiratory: No respiratory distress, Clear bilaterally - Derm Derm: Other (pale) - Neuro Neuro: No: Alert and oriented X 3 (but awaken and answers some questions) Results - Vitals Vitals: Vital Signs - 24 hr 11/02/16 11/02/16 11/02/16 03:35 04:02 06:40 Temperature 38.0 C H 37.3 C Heart Rate 139 H 139 H 124 H Respiratory 20 22 16 Rate Blood Pressure 109/77 110/76 104/74 O2 Saturation 99 98 97 Oxygen O2 Source Nasal cannula PD MEDICAL DECISION MAKING - ED course ED course: spoke to daughter and confirmed that it is her and pt wishes to to gets an labs or imaging nor to provide and further antibiotics and to proceed with comfort care VIGNESH Carter was able to place pt at [facility] for comfort care pending hospice intake and Dr Cisneros will write the orders - see her consult Departure - Departure Disposition: Home, Self Care Clinical Impression: Need for comfort care Condition: Poor Follow-Up: Rufino Cisneros MD [Primary Care Provider] - Comments: You are going to be taken to [facility] for comfort care
[2016-11-02 13:03] VITALS: BP 113/72
== END 2016-11-02 17:52 | disposition home or self-care (01) ==
LOC: EDUNIT# → ED 03:28 → SUPCPDRO 03:28 → ED 17:52
DX: R41.0 Disorientation, unspecified (principal); R45.1 Restlessness and agitation; C79.31 Secondary malignant neoplasm of brain; D72.829 Elevated white blood cell count, unspecified; R50.9 Fever, unspecified; Z85.118 Personal history of other malignant neoplasm of bronchus and lung; Z87.891 Personal history of nicotine dependence; Z91.81 History of falling; Z92.21 Personal history of antineoplastic chemotherapy; Z92.3 Personal history of irradiation
CPT/HCPCS: 96372; 99283; 99284; A9270

== ENCOUNTER 2016-11-02 17:56 | Outpatient (CLI) | payer MEDICARE, OTHER | END 2016-11-02 17:57 | LOC: EMS 17:56 | PROVIDERS: ATTEND Surgery | DX: Z74.01 Bed confinement status (principal); Z51.5 Encounter for palliative care | CPT/HCPCS: A0425; A0428 ==